=== PATIENT | male | born 1985 | race Caucasian/White ===

== ENCOUNTER → 2019-12-11 12:19 | Outpatient (BNVA) | payer MEDICAID, SELFPAY | PROVIDERS: Visit Provider Nurse Practitioner Family | DX: F19.11 Other psychoactive substance abuse, in remission (principal) | CPT/HCPCS: 80053; 86705; 86706; 86709; 86803; 87340 ==

== ENCOUNTER → 2020-07-04 15:48 | Outpatient (BNVA) | payer MEDICAID, SELFPAY | PROVIDERS: Visit Provider Emergency Medicine | DX: R22.31 Localized swelling, mass and lump, right upper limb (principal) | CPT/HCPCS: 73130 ==

== ENCOUNTER 2022-10-04 09:03 | Emergency (ER) | payer MEDICAID, SELFPAY ==
[2022-10-04 09:15] VITALS: BP 130/72; PULSE 95; RESP 16; TEMP 36.9; O2SAT 99
--- NOTE | 2022-10-04 11:49 | XRR_ITS ---
PROCEDURE INFORMATION: Exam: XR Abdomen Exam date and time: 10/04/2022 12:37 PM Age: 37 years old Clinical indication: Constipation; Additional info: Abd pain, constipation TECHNIQUE: Imaging protocol: Radiologic exam of the abdomen. Views: 2 Views. Upright and supine views. COMPARISON: No relevant prior studies available. FINDINGS: Chest examination: The lungs are expanded and clear showing no focal abnormality. Gastrointestinal tract: Normal. No bowel dilation. Negative for significant colonic fecal stasis Intraperitoneal space: Normal. No free air. Bones/joints: Unremarkable for age. XR/XR acute abdomen series [id number] IMPRESSION: No acute findings.
--- NOTE | 2022-10-04 11:52 | ED_ITS ---
HPI - Abdominal Pain General: Chief Complaint: Abdominal Pain Stated Complaint: constipation Time Seen by Provider: 10/04/22 11:46 History of Present Illness: 37-year-old male presents with upper epigastric abdominal pain little bit of pain in the left quadrant. He reports has been h aving bowel issues for about 2 weeks with release small stool and thinks he is constipated. He is try little bit of Dulcolax. Has some nausea but no vomiting. Associated Symptoms: Reports constipation and nausea; Denies chills, fever(s) and vomiting Review of Systems Const: Denies: fever(s), chills or body aches Eyes: Denies: change in vision ENMT: Denies: throat pain or ear or mastoid pain Card: Denies: chest pain or palpitations Resp: Denies: dyspnea or productive cough GI: Reports: abdominal pain, nausea and constipation; Denies: vomiting : Denies: flank pain or difficulty urinating Musc: Denies: neck pain or back pain Skin/Breast: Denies: rash or pruritus Neuro: Denies: headache(s) PFS ED PFSH: Social History Smoking and tobacco status: former smoker Alcohol intake: never Other details last substance use: meth Physical Exam Const: COMMON NORMALS: no acute distress, patient oriented x3, no limitations and alert HENMT: COMMON NORMALS: normocephalic and hearing grossly normal bilaterally HEAD & SCALP: normocephalic Chest: COMMONS NORMALS: normal inspection of the chest Resp: COMMON NORMALS: normal respiratory effort, No retractions and No use of accessory muscles Cardio: COMMON NORMALS: regular rate and regular rhythm RATE: regular rate RHYTHM: regular rhythm GI: COMMON NORMALS: Soft to palpation INSPECTION: Yes normal to inspection and No abdominal distension PALPATION: Yes Soft to palpation and Yes Tenderness to palpation present (GI) (Mild epigastric and left quadrant) : COMMON NORMALS: Yes no CVA tenderness BLADDER/KIDNEY EXAM: Yes no CVA tenderness Back/Pelvis: COMMON NORMALS: no CVA tenderness Extremity: COMMON NORMALS: full ROM and capillary refill normal NARRATIVE EXTREMITY EXAM: Normal range of motion, no acute Neuro: COMMON NORMALS: patient oriented x3, moves all extremities and no focal motor deficits SENSORIUM/ORIENTATION: Yes alert Psych: COMMON NORMALS: mental status grossly normal, cooperative and normal affect Skin: COMMON NORMALS: no rashes or lesions noted and turgor normal GENERAL SKIN EXAM: no rashes or lesions noted and turgor normal Course Vital Signs: Vital signs: Vital Signs Temperature 98.4 F 10/04/22 09:15 Pulse Rate 95 10/04/22 09:15 Respiratory Rate 16 10/04/22 09:15 Blood Pressure 130/72 10/04/22 09:15 Pulse Oximetry 99 10/04/22 09:15 MDM - Abdominal Pain Medical Decision Making Reviewed patient's labs, abdominal x-ray. Patient with no significant findings on either. Patient with likely some mild constipation. Discussed with him that if he is noticing stool changes he may want to follow-up with his primary care provider and consider a GI or general surgery consultation for colonoscopy. Recommended that he try some MiraLAX 1 capful twice daily and increase his fluids. Also because he is got some mild epigastric discomfort recommended some Pepcid twice daily along with some Tums. He is stable discharged home. Lab Data 10/04/22 12:20 10/04/22 12:20 Labs/Radiology: Radiology Impressions Chest/Abdomen X-ray 10/04/22 11:49 IMPRESSION: No acute findings. Laboratory Results WBC 5.7 10^3/uL (4.0-10.0) 10/04/22 12:20 RBC 4.61 10^6/uL (4.1-5.3) 10/04/22 12:20 Hgb 14.3 g/dL (11.7-16.6) 10/04/22 12:20 Hct 42.8 % (42.0-52.0) 10/04/22 12:20 MCV 92.8 fl (80-94) 10/04/22 12:20 MCH 31.0 pg (28.0-34.0) 10/04/22 12:20 MCHC 33.4 g/dL (30.0-36.0) 10/04/22 12:20 RDW 12.0 % (12.1-15.1) L 10/04/22 12:20 Plt Count 212 10^3/cmm (130-400) 10/04/22 12:20 MPV 9.5 fL (7.4-10.4) 10/04/22 12:20 Neut % (Auto) 46.5 % 10/04/22 12:20 Lymph % (Auto) 40.9 % 10/04/22 12:20 Carroll % (Auto) 7.8 % 10/04/22 12:20 Eos % (Auto) 3.9 % 10/04/22 12:20 Baso % (Auto) 0.7 % 10/04/22 12:20 Neut # (Auto) 2.64 10^3/uL (1.8-7.7) 10/04/22 12:20 Lymph # (Auto) 2.3 10^3/uL (0.8-4.8) 10/04/22 12:20 Carroll # (Auto) 0.4 10^3/uL (0.2-0.9) 10/04/22 12:20 Eos # (Auto) 0.2 10^3/uL (0.0-0.8) 10/04/22 12:20 Baso # (Auto) 0.0 10^3/uL (0.0-0.1) 10/04/22 12:20 Nucleated RBC % (auto) 0 % 10/04/22 12:20 Nucleated RBCs # 0.0 /100WBC 10/04/22 12:20 Sodium 138 mmol/L (136-145) 10/04/22 12:20 Potassium 3.8 mmol/L (3.5-5.1) 10/04/22 12:20 Chloride 105 mmol/L (98-107) 10/04/22 12:20 Carbon Dioxide 24 mmol/L (22-29) 10/04/22 12:20 Anion Gap 12.8 (5-19) 10/04/22 12:20 BUN 15 mg/dL (6-20) 10/04/22 12:20 Creatinine 1.2 mg/dL (0.7-1.2) 10/04/22 12:20 GFR Calculation 68.9 mL/min (90-130) L 10/04/22 12:20 Glucose 89 mg/dL (65-115) 10/04/22 12:20 Calculated Osmolality 286 mOsm/kg (285-295) 10/04/22 12:20 Calcium 9.9 mg/dL (8.5-10.5) 10/04/22 12:20 Total Bilirubin 0.4 mg/dL (0.15-1.2) 10/04/22 12:20 AST 15 U/L (0-40) 10/04/22 12:20 ALT 12 U/L (0-41) 10/04/22 12:20 Alkaline Phosphatase 62 U/L (40-130) 10/04/22 12:20 Total Protein 7.3 g/dL (6.6-8.7) 10/04/22 12:20 Albumin 4.3 g/dL (3.5-5.2) 10/04/22 12:20 Globulin 3.0 g/dL (1.3-4.6) 10/04/22 12:20 TSH 0.60 uIU/mL (0.27-4.20) 10/04/22 12:20 Discharge Plan Discharge Patient Disposition: Home Clinical Impression: Constipation Qualifiers: Constipation type: unspecified constipation type Qualified Code(s): K59.00 - Constipation, unspecified Condition: Stable Prescriptions: No Action trazodone 50 mg tablet 50 mg PO .bedtime PRN (Reason: sleep) Qty: 60 0RF paroxetine HCl [Paxil] 20 mg tablet 20 mg PO DAILY Qty: 60 0RF Discharge Orders: Discharge ED (Routine); Ordered 10/04/22 Ordered By: Jose R Vee Discharge Diet: Advance as tolerated Discharge Activity: Resume usual activity Patient Instructions: Constipation - Adult, Opioid Safety, Pain Management Activity Restrictions/Additional Instructions: MiraLAX 1 capful twice daily for the next week until soft daily stool then as ne eded. Increase your amount of fluids. If you continue to noticed stool changes or difficulty stooling, please follow-up with your primary care provider and consider a general surgery or GI consultation. Recommend Pepcid twice daily and Tums as needed for epigastric discomfort. Coding Level of Care Code ED Monument Installer for Kahlil Fwd Exam Comprehensive
[2022-10-04 12:38] LABS: Basophils % 0.7 %; Eosinophils # 0.2 10^3/uL (0.0-0.8); Eosinophils % 3.9 %; Hematocrit 42.8 % (42.0-52.0); Hemoglobin 14.3 g/dL (11.7-16.6); Lymphocytes # 2.3 10^3/uL (0.8-4.8); Lymphocytes % 40.9 %; Mean Corpuscular HGB Conc 33.4 g/dL (30.0-36.0); Mean Corpuscular Volume 92.8 fl (80-94); Mean Platelet Volume 9.5 fL (7.4-10.4); Monocytes # 0.4 10^3/uL (0.2-0.9); Monocytes % 7.8 %; Neutrophils # 2.64 10^3/uL (1.8-7.7); Neutrophils % 46.5 %; Nucleated Red Blood Cells % 0 %; Platelet Count 212 10^3/cmm (130-400); Red Blood Count 4.61 10^6/uL (4.1-5.3); White Blood Count 5.7 10^3/uL (4.0-10.0)
[2022-10-04 13:25] LABS: Alanine Aminotransferase 12 U/L (0-41); Albumin Level 4.3 g/dL (3.5-5.2); Alkaline Phosphatase 62 U/L (40-130); Anion Gap 12.8 (5-19); Aspartate Amino Transferase 15 U/L (0-40); Blood Urea Nitrogen 15 mg/dL (6-20); Calcium 9.9 mg/dL (8.5-10.5); Carbon Dioxide 24 mmol/L (22-29); Chloride 105 mmol/L (98-107); Glomerular Filtration Rate 68.9 mL/min (90-130); Glucose 89 mg/dL (65-115); Osmolality Calculated 286 mOsm/kg (285-295); Potassium 3.8 mmol/L (3.5-5.1); Sodium 138 mmol/L (136-145); Total Bilirubin 0.4 mg/dL (0.15-1.2); Total Protein 7.3 g/dL (6.6-8.7)
== END 2022-10-04 13:56 | disposition home or self-care (01) ==
PROVIDERS: Emergency Medicine; Emergency Provider Student in an Organized Health Care Education/Training Program
DX: K59.00 Constipation, unspecified (principal); Z87.891 Personal history of nicotine dependence
CPT/HCPCS: 74022; 80053; 84443; 85025; 99284

== ENCOUNTER → 2023-03-11 14:00 | Outpatient (BNVA) | payer MEDICAID, SELFPAY | PROVIDERS: Referring Provider Emergency Medicine; Visit Provider Student in an Organized Health Care Education/Training Program | DX: R22.32 Localized swelling, mass and lump, left upper limb (principal) | CPT/HCPCS: 73130; 99204 ==

== ENCOUNTER 2023-04-20 05:28 | Day surgery (SDC) | payer MEDICAID, SELFPAY ==
[2023-04-19 12:29] VITALS: BMI 21.1
[2023-04-20] VITALS (8 sets, daily range): BP systolic 89–132; BP diastolic 40–71; PULSE 53–82; RESP 16–18; TEMP 36.1–36.5; O2SAT 96–99
[2023-04-20] MEDS: acetaminophen 1,000 MG/100 ML PIGGYBACK 400 MG IV (06:49)
[2023-04-20] MEDS: ketorolac 30 mg/mL INJ IVP (06:49)
[2023-04-20] MEDS: sodium chloride 0.9% 1,000 ML 30 ML IV (06:50)
--- NOTE | 2023-04-20 06:55 | W.PM.OPSFHP ---
Same Day Surgery H&P Indication for Procedure/HPI DATE OF PROCEDURE: April 20, 2023 CHIEF COMPLAINT/INDICATIONFOR SURGICAL PROCEDURE: Left middle finger mass/cyst, failed conservative treatment after detailed discussion in the outpatient setting patient like to proceed with surgical intervention of left middle finger mass excision. Change in clinical HPI from last office visit on 03/11/2023. Patient elects proceed with surgery. PREOP DIAGNOSIS: left middle finger mass PLANNED PROCEDURE: Operation Date: 04/20/23 07:00 Proposed Procedures p Left middle finger mass excision 45660, R22.30, M67.442(Left) - Hans Wheeleratt, Medications/Allergies* Home Medications Medication Instructions Recorded Confirmed Type No Known Home Medications 01/26/23 04/19/23 History Allergies/Adverse Reactions Allergy/AdvReac Type Severity Reaction Status Date / Time codeine AdvReac Mild insomnia Verified 03/11/23 13:31 Current Medications: Generic Name Dose Route Start Last Admin Trade Name Freq PRN Reason Stop Dose Admin Sodium Chloride 1,000 mls @ 30 mls/hr 04/20/23 06:00 04/20/23 06:50 Sodium Chloride 0.9% IV 04/21/23 05:59 30 mls/hr .Q24H MALI Administration Pertinent History/Comorbid Conditions* Social History Smoking and tobacco status: former smoker Alcohol intake: never Substance/Drug Use: former Date of last use: 3 years Other details last substance use: meth Pertinent Exam Findings alert, oriented x 3, operative site marked and procedure specific exam findings Examination left hand Able to make a full fist Middle finger fds and fdp intact soft palpable and mobile mass 1cm over volar middle phalanx long finger neg tinels over mass Sensation intact to light touch distally Recommendations Surgery/Procedure today Other Plans: Patient is here today for left middle finger mass/cyst failed conservative treatment and would like to have this removed. He understands the risk benefits complication alternatives with surgery and elects proceed with surgical intervention. All questions answered. We will proceed with surgical intervention today. Coding Level of Care Code Acute Code for Chg Fwd Diagnoses
[2023-04-20] MEDS: ceFAZolin 2,000 MG in sodium chloride 0.9% (plus) 50 ML 100 MG IV (07:01)
--- NOTE | 2023-04-20 07:07 | ANES.PREANE2 ---
Pre-Anesthetic Assessment Height/Weight: Height 1.85 m Weight 72.575 kg Temp Pulse Resp BP Pulse Ox O2 Del Method 97.7 F 53 L 16 114/70 99 Room Air 04/20/23 06:01 04/20/23 06:01 04/20/23 06:01 04/20/23 06:01 04/20/23 06:01 04/20/23 06:07 Preop Diagnosis: left middle finger mass Operation Date: 04/20/23 07:00 Proposed Procedures p Left middle finger mass excision 89362, R22.30, M67.442(Left) - Hans Arik, DO Was Beta Perlita taken within 24 hours: N/A Was Clonidine taken within 24 hours: N/A Last intake: Intake Last Liquid Date 04/19/23 Last Liquid Time 23:30 Last Solid Date 04/19/23 Last Solid Time 18:00 Social No alcohol and No tobacco THC Exam alert, oriented x 3, clear to auscultation bilaterally and regular rate & rhythm Airway Submandibular: within normal limits Cervical ROM: within normal limits Mallampati: Class II Dentition: false History/ROS No significant history except as noted and No significant complaints Pulmonary None reported CV/HEM None reported None reported Hepatic None reported GI None reported Metabolic None reported Musc/skel None reported Neuropsych None reported Anesthetic Plan ASA status: 2 Anesthesia: Anesthesia Evaluation and MAC Risk of > 500 ml blood loss (7ml/kg in children): No Medications/Allergies Home Medications Medication Instructions Recorded Confirmed Last Taken Type No Known Home Medications 01/26/23 04/19/23 Unknown History Allergies Allergy/AdvReac Type Severity Reaction Status Date / Time codeine AdvReac Mild insomnia Verified 03/11/23 13:31 Current Medications Generic Name Dose Route Start Last Admin Trade Name Freq PRN Reason Stop Dose Admin Sodium Chloride 1,000 mls @ 30 mls/hr 04/20/23 06:00 04/20/23 06:50 Sodium Chloride 0.9% IV 04/21/23 05:59 30 mls/hr .Q24H MALI Administration PFSH Anesthesia Social History Smoking and tobacco status: former smoker Alcohol intake: never Substance/Drug Use: former Date of last use: 3 years Other details last substance use: meth Data Anesthesia Cardiac Studies: No Data to Display
--- NOTE | 2023-04-20 07:56 | PM.OP2 ---
Brief Operative Note Date of procedure: 04/20/23 Pre-op diagnosis: Left middle finger mass/cyst Post-op diagnosis: other (Left middle finger infected cyst) Procedure Done: Left middle finger cyst excision and irrigation and debridement Surgeon: Hans Elise Estimated blood loss (mL): 1 Complications: None Post-op Plan: Patient taken to PACU in stable condition recovering well. Pain controlled. Will receive appropriate discharge instructions as well as pain medication postoperatively. Patient understands if he has any questions or concerns and contact the office. Condition: stable Disposition: same day Coding Level of Care Code Acute Code for Kahlil Ybarra
--- NOTE | 2023-04-20 07:59 | PM.PACU ---
PACU note Narrative: Patient taken to PACU in stable condition recovering well. Left hand dressings are on in place clean dry and intact fingertips warm well-perfused brisk capillary refill less than 2 seconds. Dressing limits examination for finger range of motion and patient does have decreased sensation secondary to local anesthetic. Exam: awake Disposition: discharged
--- NOTE | 2023-04-20 08:00 | PM.OP ---
Operative Report Date of procedure: April 20, 2023 Pre-op diagnosis: Preop Diagnosis left middle finger mass Post-op diagnosis: Left middle finger cyst (possible infected) Procedure done: Left middle finger cyst excision and irrigation and debridement Specimens removed/disposition: Left middle finger cyst sent for pathology as well as cultures Surgeon: Hans Elise DO Estimated blood loss: 1 mL 17 minutes IV fluids: 700 mL Complications: None Findings: See operative report narrative Condition: stable Disposition: same day Brief History: Patient is been seen and worked up in the outpatient setting findings consistent with a left middle finger cyst. He has had this for quite some time this began to cause him significant issues and slightly getting larger in size he is continue to have pain and issues with this is becoming more bothersome we talked about treatment options nonoperative and operative intervention given he is given appropriate amount of time for this to potentially resolve on its own he requested to have the cyst excised. We talked about the risk benefits complication alternatives with surgery and ultimately through shared decision-making patient elects proceed with surgical intervention of left middle finger mass/cyst excision. All questions answered. Procedure: Patient seen evaluated in the preoperative holding area. Consent was reviewed and signed with patient. Correct digit was then marked. Patient was seen evaluate anesthesia department once cleared for surgery was taken back to the operative suite. Patient was placed on general OR table in supine position all bony prominences well-padded patient was appropriate secured to bed. Armboard was applied to the left upper extremity. A nonsterile tourniquet was applied to the left upper arm. Patient's left upper extremity was then prepped and draped in standard orthopedic fashion. Final timeout was performed. Patient received appropriate preoperative antibiotics. Esmarch tourniquet was used exsanguinate the left upper extremity tourniquet was insufflated 250 mmHg. Left middle finger cyst was visualized on the volar aspect centered over the ulnar aspect at the middle phalanx mid substance. I created a oblique incision centering over this with ability to extend to a Tata type incision if necessary. Sharp scalpel incision was made strictly just through skin I then switched to Littler dissection scissors created full-thickness skin flaps and identified to the cyst. The cyst fluid was murky and purulent in nature as to be almost an infected cyst. This communicated the flexor tendon sheath but did not communicate down the joint I utilized dissection scissors as well as sharp scalpel excision ellipsed out the cyst to its entirety and coagulated it at the base off of the flexor tendon sheath the flexor tendon sheath had no evidence of infection and all the tissue outside of the cyst was normal and healthy appearing. Identified the neurovascular bundles throughout this case during my dissection was protected by my assistant chief engineer. I then subsequently cultured the cyst fluid as well as sent this for pathology. Once I was satisfied with the cyst excision I then thoroughly irrigated the wound bed. Tourniquet was deflated hemostasis was satisfactory with bipolar electrocautery. I then subsequently closed in simple interrupted fashion Xeroform 4 x 4's ABD soft roll and an Hugo wrap was applied. Patient was awakened from anesthesia and taken to PACU in stable condition. Disposition: Patient taken to PACU in stable condition recovering well. Will receive appropriate discharge instructions as well as pain medication postoperatively. Given the concern for possibly an infected cyst I then subsequently sent patient home with prescription of antibiotics we will follow-up on his cultures as well as pathology for final definitive diagnosis. Patient understands agrees with current plan. Questions answered. We will see in 2 weeks.
--- NOTE | 2023-04-20 13:44 | ANE.PACU2 ---
Inpatient post-anesthesia follow up: Airway intact: Yes Vital signs: Temperature 97.2 F Pulse Rate 72 Respiratory Rate 18 Blood Pressure 128/68 Pulse Oximetry 96 Oxygen Delivery Me thod Room Air Oxygen Flow Rate 6 Fraction of Inspir ed Oxygen Hydration adequate: Yes Nausea and vomiting: No Pain level: 2 Mental status: Baseline
== END 2023-04-20 08:45 | disposition home or self-care (01) ==
PROVIDERS: Visit Provider Student in an Organized Health Care Education/Training Program
PROC: (CPT 26160; principal; 2023-04-20 07:00)
DX: M67.442 Ganglion, left hand
CPT/HCPCS: 26160; 87070; 87075; 87205; 88304; J0131; J0690; J1885; J2250; J2704; J2795; J3010; J3490; J7030

== ENCOUNTER → 2023-05-04 13:15 | Outpatient (BNVA) | payer MEDICAID, SELFPAY | PROVIDERS: Visit Provider Student in an Organized Health Care Education/Training Program | DX: L72.0 Epidermal cyst (principal) | CPT/HCPCS: 99024 ==

== ENCOUNTER → 2023-07-03 15:58 | Outpatient (BNVA) | payer MEDICAID, SELFPAY | PROVIDERS: Visit Provider Emergency Medicine | DX: J02.9 Acute pharyngitis, unspecified (principal); R69 Illness, unspecified; J00 Acute nasopharyngitis [common cold] | CPT/HCPCS: 87400; 87426; 87880 ==